=== PATIENT | male | born 1960 | race Caucasian/White ===

== ENCOUNTER 2018-06-28 18:57 | Inpatient (IN) | payer MEDICARE, MEDICAID ==
[~2018-06-28] VITALS: Ht 162.6 cm; Wt 74.8 kg
[~2018-06-28 18:57] MED LIST: AMLODIPINE; CLONIDINE; DOCUSATE; DOSTINEX; EPINEPHRINE 0.1MG/ML (1:10,000) 10ML SYR ONE; FOLIC ACID; LISINOPRIL; MAGNESIUM SULFATE 4G IN WATER 100ML PREMIX IV ONE; REGLAN; SIMVASTATIN; SODIUM BICARBONATE 7.5% 0.9 MEQ/ML 50ML SYR IV ONE; TRAMADOL
[2018-06-28] MEDS ORDERED: DOPAMINE 400MG PREMIX 250 ML IV ONE ×2 (19:13→19:45)
[2018-06-28] MEDS ORDERED: CALCIUM CHLORIDE 1GM/10ML SYR IV ONE ×2 (19:32→20:15)
[2018-06-28] MEDS ORDERED: EPINEPHRINE 0.1MG/ML (1:10,000) 10ML SYR ONE (19:35)
[2018-06-28] MEDS ORDERED: SODIUM BICARBONATE 8.4% 1 MEQ/ML 50ML SYR IV ONE ×2 (19:36→20:15)
[2018-06-28] MEDS ORDERED: NOREPINEPHRINE 4MG/250ML PMX 250 ML IV ONE (19:45)
[2018-06-28] MEDS ORDERED: NOREPINEPHRINE 4 MG in DEXT 5% WATER 246 ML IV ONE (19:45)
[2018-06-28 19:55] LABS: BASOPHILS % 0.9 % (0.0-2.0); EOSINOPHILS % 1.2 % (0.0-5.0); HEMATOCRIT. 35.5 % (42.0-52.0); HEMOGLOBIN. 11.4 g/dL (14.0-18.0); LYMPHOCYTES % 43.4 % (20.0-50.0); MEAN CORPUSCULAR HEMOGLOBIN 29.2 pg (28.0-32.0); MEAN CORPUSCULAR VOLUME 91.4 fL (80.0-94.0); MEAN PLATELET VOLUME 9.1 fl (7.4-10.4); MONOCYTES % 4.5 % (2.0-8.0); PLATELET 100 x1000/uL (130-400); RED BLOOD CELL COUNT 3.89 mill/uL (4.7-6.1); RED CELL DISTRIBUTION WIDTH 18.4 % (11.6-14.6)
[2018-06-28 19:58] LABS: CHLORIDE 103 mEq/L (98-107)
[2018-06-28 20:00] LABS: INR 1.2; PROTHROMBIN TIME 12.3 sec (9.1-11.1)
[2018-06-28 20:03] LABS: ETHANOL BLOOD < 10 mg/dL
[2018-06-28] MEDS ORDERED: SODIUM POLYSTYRENE SULFONATE 15 G/60 ML BOT PO ONE (20:15)
[2018-06-28] MEDS ORDERED: INSULIN REGULAR (HUMULIN R) 300UNITS/3ML IV ONE (20:15)
[2018-06-28] MEDS ORDERED: DEXTROSE 50% WATER 50ML SYRINGE IV ONE (20:15)
[2018-06-28 20:22] LABS: BG BASE EXCESS -17.7 mmol/L (-2.0-2.0); BG CARBOXYHEMOGLOBIN 0.6 % (0.5-1.5); BG DEOXYHEMOGLOBIN 23.4 % (0.0-5.0); BG FRACTION INSPIRED OXYGEN 100; BG HCO3 ACT 12.7 mmol/L (22.0-26.0); BG METHEMOGLOBIN 0.1 % (0.0-1.5); BG OXYGEN SATURATION 76.4 % (92.0-98.5); BG OXYHEMOGLOBIN 75.9 % (94.0-97.0); BG PCO2 49.3 mmHg (35.0-45.0); BG PIP 28 cmH2O; BG PO2 57.9 mmHg (75.0-100.0); BG SAMPLE SITE RIGHT BRACHIAL; BG TIDAL VOLUME(mL) 550 mL; BG VENT MODE VENT - A/C; BG VENT RATE 12 set
[2018-06-28] MEDS ORDERED: SODIUM CHLORIDE 0.9% 1000ML BAG (SEPSIS BOLUS) IV ONE (20:45)
[2018-06-28] MEDS ORDERED: PIPERACILLIN/TAZ 3.375G PREMIX 50 ML IV ONE (20:45)
[2018-06-28] MEDS ORDERED: VANCOMYCIN 1 G PREMIX 200 ML IV ONE (20:45)
[2018-06-28 22:21] VITALS: BP 117/47
[2018-06-28 22:30] VITALS: BP 128/96
[2018-06-28 23:00] VITALS: BP_SYST 117; BP_SYST 131; BP_DIAS 47; BP_DIAS 81
[2018-06-28] MEDS ORDERED: DOPAMINE 400MG PREMIX 250 ML IV PRN (23:15)
[2018-06-28] MEDS ORDERED: NOREPINEPHRINE 4 MG in DEXT 5% WATER 246 ML IV PRN (23:15)
[2018-06-28 23:30] VITALS: BP 154/104
[2018-06-28 23:45] VITALS: BP 143/86
[2018-06-29] VITALS (92 sets, daily range): BP systolic 85–195; BP diastolic 49–104
[2018-06-29] MEDS ORDERED: ACETAMINOPHEN 325MG TABLET NG PRN (03:15)
[2018-06-29] MEDS ORDERED: LORAZEPAM 0.5MG TABLET PO PRN (03:15)
[2018-06-29] MEDS ORDERED: IPRATROPIUM/ALBUTEROL 0.5-3(2.5)MG/3ML NEB INH PRN (03:15)
[2018-06-29] MEDS ORDERED: DEXTROSE 50% WATER 50ML SYRINGE IV PRN (03:15)
[2018-06-29] MEDS ORDERED: ONDANSETRON HCL 4MG/2ML INJ IV PRN (03:15)
[2018-06-29] MEDS: BLOOD SUGAR DIAGNOSTIC STRIP TEST SCH ×3 (05:09→18:00)
[2018-06-29] MEDS: INSULIN LISPRO 100 UNITS/ML SUBCUT SCH ×3 (05:13→18:00)
[2018-06-29 05:45] LABS: BG BASE EXCESS -1.2 mmol/L (-2.0-2.0); BG CARBOXYHEMOGLOBIN 0.3 % (0.5-1.5); BG DEOXYHEMOGLOBIN 1.4 % (0.0-5.0); BG FRACTION INSPIRED OXYGEN 100; BG HCO3 ACT 20.5 mmol/L (22.0-26.0); BG METHEMOGLOBIN 0.1 % (0.0-1.5); BG OXYGEN SATURATION 98.6 % (92.0-98.5); BG OXYHEMOGLOBIN 98.2 % (94.0-97.0); BG PCO2 25.1 mmHg (35.0-45.0); BG SAMPLE SITE RIGHT RADIAL; BG TIDAL VOLUME(mL) 550 mL; BG TOTAL HEMOGLOBIN 10.3 g/dL (12.0-18.0); BG VENT MODE VENT - A/C; BG VENT RATE 12 set
[2018-06-29] MEDS ORDERED: MORPHINE SULFATE 2 MG/ML CPJ (NOT FOR IM USE) IV PRN (06:00)
[2018-06-29 08:45] LABS: HEMATOCRIT 31.2 % (42.0-52.0); HEMOGLOBIN 10.4 g/dL (14.0-18.0); MEAN CORPUSCULAR HEMOGLOBIN 29.2 pg (28.0-32.0); MEAN CORPUSCULAR VOLUME 87.4 fL (80.0-94.0); PLATELET 112 x1000/uL (130-400); RED BLOOD CELL COUNT 3.57 mill/uL (4.7-6.1); RED CELL DISTRIBUTION WIDTH 18.2 % (11.6-14.6)
[2018-06-29] MEDS ORDERED: DIATR MEGLU/DIATRIZOATE SOLN 30ML PO SCH (08:45)
[2018-06-29] MEDS ORDERED: PIPERACILLIN/TAZ 3.375G PREMIX 50 ML IV SCH (08:45)
[2018-06-29 08:53] LABS: CHLORIDE 97 mEq/L (98-107)
[2018-06-29] MEDS: PIPERACILLIN/TAZ 2.25G PREMIX 50 ML IV SCH ×3 (09:15→23:11)
[2018-06-29] MEDS: PANTOPRAZOLE SODIUM 40 MG/VIAL IV SCH (09:46)
[2018-06-29] MEDS ORDERED: VANCOMYCIN 500 MG PREMIX 100 ML IV NR (11:00)
[2018-06-29] MEDS ORDERED: DIATR MEGLU/DIATRIZOATE SOLN 30ML PO NR (13:30)
[2018-06-29] MEDS: LORAZEPAM 2MG/ML CPJ IV PRN (13:56)
[2018-06-29] MEDS: IPRATROPIUM/ALBUTEROL 0.5-3(2.5)MG/3ML NEB HHN SCH ×2 (14:19→20:05)
[2018-06-29] MEDS ORDERED: IOHEXOL-300 100 ML BOTTLE ONE (19:04)
[2018-06-29] MEDS ORDERED: LORAZEPAM 2MG/ML CPJ IV PRN (21:30)
[2018-06-30] VITALS (62 sets, daily range): BP systolic 95–160; BP diastolic 46–97
[2018-06-30] MEDS: BLOOD SUGAR DIAGNOSTIC STRIP TEST SCH ×4 (00:37→18:00)
[2018-06-30] MEDS: IPRATROPIUM/ALBUTEROL 0.5-3(2.5)MG/3ML NEB HHN SCH ×4 (01:41→20:03)
[2018-06-30] MEDS: PIPERACILLIN/TAZ 2.25G PREMIX 50 ML IV SCH ×4 (03:22→21:26)
[2018-06-30 05:58] LABS: BASOPHILS % 0.5 % (0.0-2.0); EOSINOPHILS % 0.6 % (0.0-5.0); HEMATOCRIT. 27.9 % (42.0-52.0); HEMOGLOBIN. 9.5 g/dL (14.0-18.0); LYMPHOCYTES % 11.5 % (20.0-50.0); MEAN CORPUSCULAR HEMOGLOBIN 29.9 pg (28.0-32.0); MEAN CORPUSCULAR VOLUME 87.5 fL (80.0-94.0); MEAN PLATELET VOLUME 8.7 fl (7.4-10.4); MONOCYTES % 5.5 % (2.0-8.0); NEUTROPHILS % 81.9 % (40.0-76.0); PLATELET 88 x1000/uL (130-400); RED BLOOD CELL COUNT 3.19 mill/uL (4.7-6.1); RED CELL DISTRIBUTION WIDTH 18.5 % (11.6-14.6)
[2018-06-30] MEDS: INSULIN LISPRO 100 UNITS/ML SUBCUT SCH ×4 (06:00→18:06)
[2018-06-30 06:02] LABS: INR 1.3
[2018-06-30 07:34] LABS: BG BASE EXCESS -3.5 mmol/L (-2.0-2.0); BG CARBOXYHEMOGLOBIN 0.7 % (0.5-1.5); BG HCO3 ACT 22.2 mmol/L (22.0-26.0); BG METHEMOGLOBIN 0.1 % (0.0-1.5); BG OXYGEN SATURATION 74.8 % (92.0-98.5); BG OXYHEMOGLOBIN 74.2 % (94.0-97.0); BG PCO2 42.6 mmHg (35.0-45.0); BG PH 7.334 (7.350-7.450); BG PO2 45.8 mmHg (75.0-100.0); BG SAMPLE SITE RIGHT RADIAL; BG TIDAL VOLUME(mL) 550 mL; BG TOTAL HEMOGLOBIN 10.6 g/dL (12.0-18.0); BG VENT MODE VENT - A/C; BG VENT RATE 12 set
[2018-06-30] MEDS: LORAZEPAM 2MG/ML CPJ IV PRN ×3 (07:42→15:50)
[2018-06-30] MEDS: PANTOPRAZOLE SODIUM 40 MG/VIAL IV SCH (09:09)
[2018-06-30] MEDS ORDERED: LIDOCAINE HCL/PF 1% 2ML VIAL ONE (14:38)
[2018-06-30] MEDS ORDERED: VANCOMYCIN 1 G PREMIX 200 ML IV NR (17:00)
[2018-06-30] MEDS ORDERED: EPOETIN ALFA 10000UNITS/ML VIAL SUBCUT SCH (21:00)
[2018-07-01] VITALS (52 sets, daily range): BP systolic 62–165; BP diastolic 42–121
[2018-07-01] MEDS: INSULIN LISPRO 100 UNITS/ML SUBCUT SCH ×4 (00:14→17:38)
[2018-07-01] MEDS: BLOOD SUGAR DIAGNOSTIC STRIP TEST SCH ×4 (00:15→17:39)
[2018-07-01] MEDS: EPOETIN ALFA 10000UNITS/ML VIAL SUBCUT SCH (01:54)
[2018-07-01] MEDS: IPRATROPIUM/ALBUTEROL 0.5-3(2.5)MG/3ML NEB HHN SCH ×4 (02:02→19:57)
[2018-07-01] MEDS: LORAZEPAM 2MG/ML CPJ IV PRN (02:04)
[2018-07-01] MEDS: PIPERACILLIN/TAZ 2.25G PREMIX 50 ML IV SCH ×3 (06:06→21:11)
[2018-07-01 06:32] LABS: HEMATOCRIT. 28.9 % (42.0-52.0); HEMOGLOBIN. 9.6 g/dL (14.0-18.0); MEAN CORPUSCULAR HEMOGLOBIN 29.3 pg (28.0-32.0); MEAN PLATELET VOLUME 8.5 fl (7.4-10.4); PLATELET 84 x1000/uL (130-400); RED BLOOD CELL COUNT 3.29 mill/uL (4.7-6.1); RED CELL DISTRIBUTION WIDTH 17.9 % (11.6-14.6)
[2018-07-01 06:59] LABS: PLATELET ESTIMATE DECREASED
[2018-07-01] MEDS: PANTOPRAZOLE SODIUM 40 MG/VIAL IV SCH (08:50)
[2018-07-01 09:51] LABS: BG BASE EXCESS 0.7 mmol/L (-2.0-2.0); BG CARBOXYHEMOGLOBIN 0.1 % (0.5-1.5); BG DEOXYHEMOGLOBIN 3.5 % (0.0-5.0); BG HCO3 ACT 25.9 mmol/L (22.0-26.0); BG METHEMOGLOBIN 0.2 % (0.0-1.5); BG OXYGEN SATURATION 96.5 % (92.0-98.5); BG OXYHEMOGLOBIN 96.2 % (94.0-97.0); BG PCO2 43.7 mmHg (35.0-45.0); BG PO2 94.6 mmHg (75.0-100.0); BG SAMPLE SITE RIGHT RADIAL; BG TIDAL VOLUME(mL) 550 mL; BG TOTAL HEMOGLOBIN 10.2 g/dL (12.0-18.0); BG VENT MODE VENT - A/C; BG VENT RATE 12 set
[2018-07-01] MEDS ORDERED: MORPHINE SULFATE 2 MG/ML CPJ (NOT FOR IM USE) IV PRN (14:15)
[2018-07-01] MEDS: HYDROMORPHONE HCL/PF 2MG/ML CPJ IV PRN (16:03)
[2018-07-02] VITALS (81 sets, daily range): BP systolic 66–201; BP diastolic 37–186
[2018-07-02] MEDS: INSULIN LISPRO 100 UNITS/ML SUBCUT SCH ×5 (00:22→23:16)
[2018-07-02] MEDS: BLOOD SUGAR DIAGNOSTIC STRIP TEST SCH ×5 (00:22→23:16)
[2018-07-02 00:59] LABS: BG BASE EXCESS -4.1 mmol/L (-2.0-2.0); BG CARBOXYHEMOGLOBIN 0.5 % (0.5-1.5); BG DEOXYHEMOGLOBIN 4.8 % (0.0-5.0); BG FRACTION INSPIRED OXYGEN 40; BG HCO3 ACT 19.8 mmol/L (22.0-26.0); BG METHEMOGLOBIN 0.1 % (0.0-1.5); BG OXYGEN SATURATION 95.2 % (92.0-98.5); BG OXYHEMOGLOBIN 94.6 % (94.0-97.0); BG PCO2 32.3 mmHg (35.0-45.0); BG PH 7.406 (7.350-7.450); BG PO2 82.3 mmHg (75.0-100.0); BG SAMPLE SITE RIGHT RADIAL; BG TIDAL VOLUME(mL) 550 mL; BG TOTAL HEMOGLOBIN 11.3 g/dL (12.0-18.0); BG VENT MODE VENT - A/C; BG VENT RATE 12 set
[2018-07-02] MEDS: IPRATROPIUM/ALBUTEROL 0.5-3(2.5)MG/3ML NEB HHN SCH ×4 (01:39→20:13)
[2018-07-02 05:12] LABS: HEMOGLOBIN. 10.3 g/dL (14.0-18.0); MEAN CORPUSCULAR HEMOGLOBIN 29.4 pg (28.0-32.0); MEAN CORPUSCULAR VOLUME 88.5 fL (80.0-94.0); MEAN PLATELET VOLUME 9.7 fl (7.4-10.4); PLATELET 103 x1000/uL (130-400); RED CELL DISTRIBUTION WIDTH 17.6 % (11.6-14.6)
[2018-07-02] MEDS: PIPERACILLIN/TAZ 2.25G PREMIX 50 ML IV SCH ×3 (05:46→21:16)
[2018-07-02 08:03] LABS: BG BASE EXCESS -4.8 mmol/L (-2.0-2.0); BG CARBOXYHEMOGLOBIN 0.3 % (0.5-1.5); BG DEOXYHEMOGLOBIN 1.8 % (0.0-5.0); BG FRACTION INSPIRED OXYGEN 40; BG METHEMOGLOBIN 0.3 % (0.0-1.5); BG OXYGEN SATURATION 98.2 % (92.0-98.5); BG OXYHEMOGLOBIN 97.6 % (94.0-97.0); BG PCO2 30.6 mmHg (35.0-45.0); BG PO2 135.6 mmHg (75.0-100.0); BG SAMPLE SITE RIGHT RADIAL; BG TIDAL VOLUME(mL) 550 mL; BG TOTAL HEMOGLOBIN 10.7 g/dL (12.0-18.0); BG VENT MODE VENT - A/C; BG VENT RATE 12 set
[2018-07-02] MEDS: PANTOPRAZOLE SODIUM 40 MG/VIAL IV SCH (08:06)
[2018-07-02] MEDS: HYDROMORPHONE HCL/PF 2MG/ML CPJ IV PRN ×3 (08:07→23:37)
[2018-07-02 10:46] LABS: PLATELET ESTIMATE DECREASED
[2018-07-02] MEDS: LORAZEPAM 2MG/ML CPJ IV PRN (17:44)
[2018-07-02] MEDS ORDERED: VANCOMYCIN 750 MG PREMIX 150 ML IV SCH (21:00)
[2018-07-03] VITALS (59 sets, daily range): BP systolic 90–144; BP diastolic 50–82
[2018-07-03] MEDS: IPRATROPIUM/ALBUTEROL 0.5-3(2.5)MG/3ML NEB HHN SCH ×4 (02:07→21:21)
[2018-07-03] MEDS: INSULIN LISPRO 100 UNITS/ML SUBCUT SCH ×4 (05:25→23:26)
[2018-07-03] MEDS: PIPERACILLIN/TAZ 2.25G PREMIX 50 ML IV SCH ×3 (05:25→21:02)
[2018-07-03] MEDS: BLOOD SUGAR DIAGNOSTIC STRIP TEST SCH ×4 (05:25→23:26)
[2018-07-03] MEDS: PANTOPRAZOLE SODIUM 40 MG/VIAL IV SCH (08:28)
[2018-07-03] MEDS: NYSTATIN POWDER 15GM TOP SCH ×2 (08:29→16:11)
[2018-07-03] MEDS: HYDROMORPHONE HCL/PF 2MG/ML CPJ IV PRN (08:29)
[2018-07-03 10:58] LABS: BG BASE EXCESS 0.7 mmol/L (-2.0-2.0); BG CARBOXYHEMOGLOBIN 0.5 % (0.5-1.5); BG DEOXYHEMOGLOBIN 3.6 % (0.0-5.0); BG FRACTION INSPIRED OXYGEN 35; BG HCO3 ACT 27.1 mmol/L (22.0-26.0); BG OXYGEN SATURATION 96.4 % (92.0-98.5); BG OXYHEMOGLOBIN 95.9 % (94.0-97.0); BG PH 7.335 (7.350-7.450); BG PO2 94.1 mmHg (75.0-100.0); BG PRESSURE SUPPORT 8; BG SAMPLE SITE RIGHT RADIAL; BG TOTAL HEMOGLOBIN 10.3 g/dL (12.0-18.0); BG VENT MODE VENT - CPAP
[2018-07-04] VITALS (49 sets, daily range): BP systolic 89–140; BP diastolic 29–69
[2018-07-04] MEDS: IPRATROPIUM/ALBUTEROL 0.5-3(2.5)MG/3ML NEB HHN SCH ×4 (00:56→20:45)
[2018-07-04] MEDS: HYDROMORPHONE HCL/PF 2MG/ML CPJ IV PRN ×2 (04:40→23:49)
[2018-07-04] MEDS: PIPERACILLIN/TAZ 2.25G PREMIX 50 ML IV SCH ×3 (05:12→21:01)
[2018-07-04] MEDS: INSULIN LISPRO 100 UNITS/ML SUBCUT SCH ×3 (05:13→18:50)
[2018-07-04] MEDS: BLOOD SUGAR DIAGNOSTIC STRIP TEST SCH ×3 (05:15→18:47)
[2018-07-04 05:30] LABS: BASOPHILS % 0.6 % (0.0-2.0); EOSINOPHILS % 2.3 % (0.0-5.0); HEMATOCRIT. 28.3 % (42.0-52.0); HEMOGLOBIN. 9.3 g/dL (14.0-18.0); LYMPHOCYTES % 10.4 % (20.0-50.0); MEAN CORPUSCULAR HEMOGLOBIN 29.9 pg (28.0-32.0); MEAN CORPUSCULAR VOLUME 90.9 fL (80.0-94.0); MEAN PLATELET VOLUME 9.3 fl (7.4-10.4); MONOCYTES % 7.7 % (2.0-8.0); PLATELET 104 x1000/uL (130-400); RED BLOOD CELL COUNT 3.11 mill/uL (4.7-6.1); RED CELL DISTRIBUTION WIDTH 17.8 % (11.6-14.6)
[2018-07-04 05:53] LABS: PHOSPHORUS 7.4 mg/dL (2.5-4.9)
[2018-07-04] MEDS: PANTOPRAZOLE SODIUM 40 MG/VIAL IV SCH (08:00)
[2018-07-04] MEDS: CALCIUM ACETATE 667MG CAPSULE PO SCH ×3 (08:00→18:47)
[2018-07-04] MEDS: FOLIC ACID/VITAMIN B COMP W-C TABLET PO SCH (08:01)
[2018-07-04] MEDS: NYSTATIN POWDER 15GM TOP SCH ×2 (08:01→18:48)
[2018-07-05] VITALS (14 sets, daily range): BP systolic 91–147; BP diastolic 34–64
[2018-07-05] MEDS: IPRATROPIUM/ALBUTEROL 0.5-3(2.5)MG/3ML NEB HHN SCH ×4 (02:01→21:59)
[2018-07-05] MEDS: PIPERACILLIN/TAZ 2.25G PREMIX 50 ML IV SCH ×3 (06:07→21:14)
[2018-07-05] MEDS: HYDROMORPHONE HCL/PF 2MG/ML CPJ IV PRN ×2 (06:10→21:15)
[2018-07-05] MEDS: INSULIN LISPRO 100 UNITS/ML SUBCUT SCH ×4 (06:50→21:08)
[2018-07-05] MEDS: BLOOD SUGAR DIAGNOSTIC STRIP TEST SCH ×4 (06:52→20:47)
[2018-07-05 07:43] LABS: BASOPHILS % 0.8 % (0.0-2.0); EOSINOPHILS % 3.9 % (0.0-5.0); HEMOGLOBIN. 9.1 g/dL (14.0-18.0); LYMPHOCYTES % 14.4 % (20.0-50.0); MEAN CORPUSCULAR HEMOGLOBIN 29.5 pg (28.0-32.0); MEAN CORPUSCULAR VOLUME 90.1 fL (80.0-94.0); MEAN PLATELET VOLUME 9.1 fl (7.4-10.4); MONOCYTES % 7.7 % (2.0-8.0); NEUTROPHILS % 73.2 % (40.0-76.0); PLATELET 126 x1000/uL (130-400); RED CELL DISTRIBUTION WIDTH 17.4 % (11.6-14.6)
[2018-07-05] MEDS: NYSTATIN POWDER 15GM TOP SCH ×2 (07:59→17:00)
[2018-07-05] MEDS: CALCIUM ACETATE 667MG CAPSULE PO SCH ×3 (08:02→18:57)
[2018-07-05] MEDS: FOLIC ACID/VITAMIN B COMP W-C TABLET PO SCH (08:02)
[2018-07-05] MEDS: PANTOPRAZOLE SODIUM 40 MG/VIAL IV SCH (08:02)
[2018-07-05] MEDS ORDERED: HEPARIN 25,000 UNITS PREMIX 500 ML IV PRN (17:45)
[2018-07-05] MEDS ORDERED: HEPARIN 5000 UNITS/ML VIAL IV PRN ×2 (17:45)
[2018-07-05] MEDS ORDERED: HEPARIN 5000 UNITS/ML VIAL IV SCH (17:45)
[2018-07-05 19:48] LABS: INR 1.2; PROTHROMBIN TIME 12.1 sec (9.1-11.1)
[2018-07-05] MEDS ORDERED: HEPARIN 25,000 UNITS PREMIX 500 ML IV SCH (21:00)
[2018-07-05] MEDS ORDERED: HEPARIN BOLUS PRN aPTT 37-44 IV (21:00)
[2018-07-05] MEDS ORDERED: HEPARIN 80 UNITS/KG BOLUS IV NR (21:00)
[2018-07-05] MEDS ORDERED: HEPARIN BOLUS PRN aPTT <36 IV (21:00)
[2018-07-05] MEDS: EPOETIN ALFA 10000UNITS/ML VIAL SUBCUT SCH (21:11)
[2018-07-06] VITALS (18 sets, daily range): BP systolic 99–139; BP diastolic 24–79
[2018-07-06] MEDS ORDERED: DIPHENHYDRAMINE 25MG CAPSULE PO PRN (00:15)
[2018-07-06] MEDS: IPRATROPIUM/ALBUTEROL 0.5-3(2.5)MG/3ML NEB HHN SCH ×4 (03:21→21:26)
[2018-07-06] MEDS: PIPERACILLIN/TAZ 2.25G PREMIX 50 ML IV SCH ×3 (05:29→21:19)
[2018-07-06] MEDS: BLOOD SUGAR DIAGNOSTIC STRIP TEST SCH ×4 (06:27→22:54)
[2018-07-06] MEDS: INSULIN LISPRO 100 UNITS/ML SUBCUT SCH ×4 (06:50→21:00)
[2018-07-06] MEDS: NYSTATIN POWDER 15GM TOP SCH ×2 (08:58→17:00)
[2018-07-06] MEDS: PANTOPRAZOLE SODIUM 40 MG/VIAL IV SCH (08:58)
[2018-07-06] MEDS: FOLIC ACID/VITAMIN B COMP W-C TABLET PO SCH (08:58)
[2018-07-06] MEDS: CALCIUM ACETATE 667MG CAPSULE PO SCH ×3 (08:58→17:20)
[2018-07-06] MEDS ORDERED: LIDOCAINE HCL 1% 20ML VIAL (Pyxis) INJ ONE (15:01)
[2018-07-06] MEDS ORDERED: IODIXANOL 320MG/ML 100 ML BOTTLE IV ONE ×2 (15:01→15:25)
[2018-07-06] MEDS ORDERED: MIDAZOLAM HCL 2 MG/2 ML VIAL ONE (15:02)
[2018-07-06] MEDS ORDERED: FENTANYL CITRATE/PF 50MCG/ML 2ML VIAL ONE (15:03)
[2018-07-06] MEDS ORDERED: IOHEXOL-300 100 ML BOTTLE ONE (15:23)
[2018-07-06] MEDS: ASPIRIN 81MG TABLET PO SCH (16:00)
[2018-07-06] MEDS ORDERED: CLOPIDOGREL 75MG TABLET ONE (16:01)
[2018-07-06] MEDS ORDERED: ASPIRIN 325MG TABLET ONE (16:02)
[2018-07-06] MEDS ORDERED: NICARDIPINE 100MCG/ML 10ML VIAL (CATH LAB) IV ONE (16:08)
[2018-07-06] MEDS ORDERED: NITROGLYCERIN 50MCG/ML 10ML VIAL (CATH LAB) IV ONE (16:08)
[2018-07-06] MEDS ORDERED: HEPARIN SODIUM 1,000 UNIT/1ML VIAL IV ONE (16:12)
[2018-07-06] MEDS: MORPHINE SULFATE 4 MG/ML CPJ (NOT FOR IM USE) IV PRN (22:49)
[2018-07-07] VITALS (31 sets, daily range): BP systolic 100–153; BP diastolic 17–80
[2018-07-07] MEDS: IPRATROPIUM/ALBUTEROL 0.5-3(2.5)MG/3ML NEB HHN SCH ×4 (02:27→21:01)
[2018-07-07] MEDS ORDERED: ATROPINE SULFATE 1MG/10ML SYR ONE (03:39)
[2018-07-07] MEDS: BLOOD SUGAR DIAGNOSTIC STRIP TEST SCH ×4 (05:21→21:13)
[2018-07-07] MEDS: MORPHINE SULFATE 4 MG/ML CPJ (NOT FOR IM USE) IV PRN (05:31)
[2018-07-07] MEDS: INSULIN LISPRO 100 UNITS/ML SUBCUT SCH ×4 (06:14→21:36)
[2018-07-07] MEDS: CALCIUM ACETATE 667MG CAPSULE PO SCH ×3 (07:20→19:14)
[2018-07-07 07:58] LABS: BASOPHILS % 0.7 % (0.0-2.0); EOSINOPHILS % 2.5 % (0.0-5.0); HEMOGLOBIN. 9.3 g/dL (14.0-18.0); LYMPHOCYTES % 13.6 % (20.0-50.0); MEAN CORPUSCULAR HEMOGLOBIN 29.5 pg (28.0-32.0); MEAN CORPUSCULAR VOLUME 91.6 fL (80.0-94.0); MEAN PLATELET VOLUME 8.3 fl (7.4-10.4); MONOCYTES % 8.4 % (2.0-8.0); NEUTROPHILS % 74.8 % (40.0-76.0); PLATELET 154 x1000/uL (130-400); RED BLOOD CELL COUNT 3.16 mill/uL (4.7-6.1); RED CELL DISTRIBUTION WIDTH 17.3 % (11.6-14.6)
[2018-07-07] MEDS: PANTOPRAZOLE SODIUM 40 MG/VIAL IV SCH (08:33)
[2018-07-07] MEDS: CLOPIDOGREL 75MG TABLET PO SCH (08:33)
[2018-07-07] MEDS: FOLIC ACID/VITAMIN B COMP W-C TABLET PO SCH (08:33)
[2018-07-07] MEDS: ASPIRIN 81MG TABLET PO SCH (08:33)
[2018-07-07] MEDS: HEPARIN 5000 UNITS/ML VIAL SUBCUT SCH ×2 (08:34→21:10)
[2018-07-07] MEDS ORDERED: HYDROMORPHONE HCL/PF 2MG/ML CPJ IV PRN (09:15)
[2018-07-07] MEDS: NYSTATIN POWDER 15GM TOP SCH ×2 (16:25→17:00)
[2018-07-08] VITALS (11 sets, daily range): BP systolic 116–142; BP diastolic 24–65
[2018-07-08] MEDS: IPRATROPIUM/ALBUTEROL 0.5-3(2.5)MG/3ML NEB HHN SCH ×3 (01:25→15:15)
[2018-07-08] MEDS: BLOOD SUGAR DIAGNOSTIC STRIP TEST SCH ×3 (06:24→17:02)
[2018-07-08] MEDS: INSULIN LISPRO 100 UNITS/ML SUBCUT SCH ×3 (06:50→17:23)
[2018-07-08 07:42] LABS: BASOPHILS % 0.8 % (0.0-2.0); EOSINOPHILS % 3.5 % (0.0-5.0); HEMATOCRIT. 29.6 % (42.0-52.0); HEMOGLOBIN. 9.4 g/dL (14.0-18.0); LYMPHOCYTES % 15.6 % (20.0-50.0); MEAN CORPUSCULAR VOLUME 91.5 fL (80.0-94.0); MEAN PLATELET VOLUME 7.9 fl (7.4-10.4); MONOCYTES % 8.5 % (2.0-8.0); NEUTROPHILS % 71.6 % (40.0-76.0); PLATELET 160 x1000/uL (130-400); RED BLOOD CELL COUNT 3.24 mill/uL (4.7-6.1); RED CELL DISTRIBUTION WIDTH 17.7 % (11.6-14.6)
[2018-07-08] MEDS: CLOPIDOGREL 75MG TABLET PO SCH (08:38)
[2018-07-08] MEDS: FOLIC ACID/VITAMIN B COMP W-C TABLET PO SCH (08:38)
[2018-07-08] MEDS: HEPARIN 5000 UNITS/ML VIAL SUBCUT SCH (08:38)
[2018-07-08] MEDS: ASPIRIN 81MG TABLET PO SCH (08:38)
[2018-07-08] MEDS: PANTOPRAZOLE SODIUM 40 MG/VIAL IV SCH (08:38)
[2018-07-08] MEDS: NYSTATIN POWDER 15GM TOP SCH (09:00)
[2018-07-08] MEDS: CALCIUM ACETATE 667MG CAPSULE PO SCH ×2 (13:10→17:22)
== END 2018-07-08 18:40 | DRG 246 ==
LOC: ER 18:57 → MICUSO 21:11 → EDBEDREQTM 21:16 → EDBEDREQ 21:16 → ENRESERV 21:26 → 3WST 07-04 23:14
PROVIDERS: ADMIT Internal Medicine; ATTEND Internal Medicine
PROC: 5A1955Z Respiratory Ventilation, Greater than 96 Consecutive Hours (ICD-10-PCS; principal; 2018-06-28)
PROC: 0BH17EZ Insertion of Endotracheal Airway into Trachea, Via Natural or Artificial Opening (ICD-10-PCS; 2018-06-28)
PROC: 5A12012 Performance of Cardiac Output, Single, Manual (ICD-10-PCS; 2018-06-28)
PROC: 06HM33Z Insertion of Infusion Device into Right Femoral Vein, Percutaneous Approach (ICD-10-PCS; 2018-06-28)
PROC: B54BZZA Ultrasonography of Right Lower Extremity Veins, Guidance (ICD-10-PCS; 2018-06-28)
PROC: 5A1D70Z Performance of Urinary Filtration, Intermittent, Less than 6 Hours Per Day (ICD-10-PCS; 2018-06-29)
PROC: 5A1D70Z Performance of Urinary Filtration, Intermittent, Less than 6 Hours Per Day (ICD-10-PCS; 2018-06-30)
PROC: 5A1D70Z Performance of Urinary Filtration, Intermittent, Less than 6 Hours Per Day (ICD-10-PCS; 2018-07-02)
PROC: 5A1D70Z Performance of Urinary Filtration, Intermittent, Less than 6 Hours Per Day (ICD-10-PCS; 2018-07-05)
PROC: 027035Z Dilation of Coronary Artery, One Artery with Two Drug-eluting Intraluminal Devices, Percutaneous Approach (ICD-10-PCS; 2018-07-06)
PROC: 4A023N7 Measurement of Cardiac Sampling and Pressure, Left Heart, Percutaneous Approach (ICD-10-PCS; 2018-07-06)
PROC: B2111ZZ Fluoroscopy of Multiple Coronary Arteries using Low Osmolar Contrast (ICD-10-PCS; 2018-07-06)
PROC: B2151ZZ Fluoroscopy of Left Heart using Low Osmolar Contrast (ICD-10-PCS; 2018-07-06)
PROC: B2181ZZ Fluoroscopy of Left Internal Mammary Bypass Graft using Low Osmolar Contrast (ICD-10-PCS; 2018-07-06)
PROC: B2121ZZ Fluoroscopy of Single Coronary Artery Bypass Graft using Low Osmolar Contrast (ICD-10-PCS; 2018-07-06)
PROC: 5A1D70Z Performance of Urinary Filtration, Intermittent, Less than 6 Hours Per Day (ICD-10-PCS; 2018-07-06)
DX: I21.4 Non-ST elevation (NSTEMI) myocardial infarction (principal); J96.01 Acute respiratory failure with hypoxia; I50.23 Acute on chronic systolic (congestive) heart failure; N18.6 End stage renal disease; I49.01 Ventricular fibrillation; I46.9 Cardiac arrest, cause unspecified; E43 Unspecified severe protein-calorie malnutrition; G93.1 Anoxic brain damage, not elsewhere classified; E87.2 Acidosis; I13.2 Hypertensive heart and chronic kidney disease with heart failure and with stage 5 chronic kidney disease, or end stage renal disease; I82.621 Acute embolism and thrombosis of deep veins of right upper extremity; N17.9 Acute kidney failure, unspecified; E87.5 Hyperkalemia; E11.319 Type 2 diabetes mellitus with unspecified diabetic retinopathy without macular edema; E11.51 Type 2 diabetes mellitus with diabetic peripheral angiopathy without gangrene; E11.22 Type 2 diabetes mellitus with diabetic chronic kidney disease; R74.0 Nonspecific elevation of levels of transaminase and lactic acid dehydrogenase [LDH]; R19.7 Diarrhea, unspecified; R26.9 Unspecified abnormalities of gait and mobility; E11.42 Type 2 diabetes mellitus with diabetic polyneuropathy; D64.9 Anemia, unspecified; I25.5 Ischemic cardiomyopathy; E78.5 Hyperlipidemia, unspecified; I25.10 Atherosclerotic heart disease of native coronary artery without angina pectoris; G54.6 Phantom limb syndrome with pain; H54.62 Unqualified visual loss, left eye, normal vision right eye; I25.2 Old myocardial infarction; Z78.1 Physical restraint status; Z99.2 Dependence on renal dialysis; Z83.3 Family history of diabetes mellitus; Z95.810 Presence of automatic (implantable) cardiac defibrillator; Z95.1 Presence of aortocoronary bypass graft; Z88.5 Allergy status to narcotic agent; Z79.899 Other long term (current) drug therapy; Z89.422 Acquired absence of other left toe(s); Z89.421 Acquired absence of other right toe(s); Z68.28 Body mass index [BMI] 28.0-28.9, adult
CPT/HCPCS: 36415; 36556; 36600; 71045; 74177; 80048; 80051; 80202; 82375; 82805; 82962; 83605; 83735; 83880; 84100; 84132; 84134; 84484; 85027; 85347; 86850; 86900; 87070; 87106; 92610; 92928; 92950; 93005; 93306; 93459; 93971; 94002; 94003; 94640; 96374; 96375; 97162; 97166; 97530; 97535; 99291; A6261; C1725; C1769; C1874; C1887; C1893; C9113; G0482; J0461; J0885; J1170; J1265; J1644; J1815; J2060; J2250; J2270; J2543; J3010; J3370; J3475; J3490; J7030; J7050; J7060; J7620; Q0163; Q9963; Q9967

== ENCOUNTER 2018-07-08 18:45 | Inpatient (IN) | payer MEDICARE, MEDICAID ==
[~2018-07-08] VITALS: Ht 172.7 cm; Wt 74.8 kg
[~2018-07-08 18:45] MED LIST changes: -EPINEPHRINE 0.1MG/ML (1:10,000) 10ML SYR ONE; -MAGNESIUM SULFATE 4G IN WATER 100ML PREMIX IV ONE; -SODIUM BICARBONATE 7.5% 0.9 MEQ/ML 50ML SYR IV ONE
[2018-07-08] MEDS ORDERED: IPRATROPIUM/ALBUTEROL 0.5-3(2.5)MG/3ML NEB HHN PRN (19:45)
[2018-07-08] MEDS ORDERED: ONDANSETRON HCL 4MG/2ML INJ IV PRN (19:45)
[2018-07-08] MEDS ORDERED: ACETAMINOPHEN 325MG TABLET PO PRN (19:45)
[2018-07-08 20:00] VITALS: BP_SYST 138; BP_SYST 142; BP_DIAS 33; BP_DIAS 52
[2018-07-08] MEDS ORDERED: DEXTROSE 50% WATER 50ML SYRINGE IV PRN (20:00)
[2018-07-08] MEDS: HYDROMORPHONE HCL/PF 2MG/ML CPJ IV PRN (20:37)
[2018-07-08] MEDS: BLOOD SUGAR DIAGNOSTIC STRIP TEST SCH (21:00)
[2018-07-08] MEDS: IPRATROPIUM/ALBUTEROL 0.5-3(2.5)MG/3ML NEB HHN SCH (21:07)
[2018-07-08] MEDS: HEPARIN 5000 UNITS/ML VIAL SUBCUT SCH (22:02)
[2018-07-08] MEDS: INSULIN LISPRO 100 UNITS/ML SUBCUT SCH (22:11)
[2018-07-09] MEDS: HYDROMORPHONE HCL/PF 2MG/ML CPJ IV PRN ×3 (03:57→23:10)
[2018-07-09] MEDS: BLOOD SUGAR DIAGNOSTIC STRIP TEST SCH ×4 (05:59→21:13)
[2018-07-09] MEDS: INSULIN LISPRO 100 UNITS/ML SUBCUT SCH ×4 (05:59→21:42)
[2018-07-09] MEDS: DIPHENHYDRAMINE 25MG CAPSULE PO PRN (06:22)
[2018-07-09 07:53] LABS: BASOPHILS % 0.8 % (0.0-2.0); EOSINOPHILS % 3.3 % (0.0-5.0); HEMOGLOBIN. 9.3 g/dL (14.0-18.0); LYMPHOCYTES % 18.1 % (20.0-50.0); MEAN CORPUSCULAR HEMOGLOBIN 29.4 pg (28.0-32.0); MEAN CORPUSCULAR VOLUME 92.1 fL (80.0-94.0); MEAN PLATELET VOLUME 7.8 fl (7.4-10.4); MONOCYTES % 6.3 % (2.0-8.0); NEUTROPHILS % 71.5 % (40.0-76.0); PLATELET 155 x1000/uL (130-400); RED BLOOD CELL COUNT 3.14 mill/uL (4.7-6.1)
[2018-07-09 08:09] LABS: CHLORIDE 103 mEq/L (98-107)
[2018-07-09] MEDS: IPRATROPIUM/ALBUTEROL 0.5-3(2.5)MG/3ML NEB HHN SCH ×3 (08:09→19:55)
[2018-07-09 08:13] VITALS: BP 140/43
[2018-07-09] MEDS: CALCIUM ACETATE 667MG CAPSULE PO SCH ×3 (09:07→16:38)
[2018-07-09] MEDS: CLOPIDOGREL 75MG TABLET PO SCH (09:08)
[2018-07-09] MEDS: FOLIC ACID/VITAMIN B COMP W-C TABLET PO SCH (09:08)
[2018-07-09] MEDS: ASPIRIN 81MG TABLET PO SCH (09:08)
[2018-07-09] MEDS: HEPARIN 5000 UNITS/ML VIAL SUBCUT SCH ×2 (09:14→21:13)
[2018-07-09] MEDS: NYSTATIN POWDER 15GM TOP SCH ×2 (11:10→16:43)
[2018-07-09 20:00] VITALS: BP 122/43
[2018-07-10] MEDS: IPRATROPIUM/ALBUTEROL 0.5-3(2.5)MG/3ML NEB HHN SCH ×4 (03:53→21:27)
[2018-07-10] MEDS: INSULIN LISPRO 100 UNITS/ML SUBCUT SCH ×4 (05:40→21:00)
[2018-07-10] MEDS: BLOOD SUGAR DIAGNOSTIC STRIP TEST SCH ×4 (05:40→21:00)
[2018-07-10 07:00] VITALS: BP 132/17
[2018-07-10] MEDS: CLOPIDOGREL 75MG TABLET PO SCH (08:31)
[2018-07-10] MEDS: CALCIUM ACETATE 667MG CAPSULE PO SCH ×3 (08:31→17:09)
[2018-07-10] MEDS: FOLIC ACID/VITAMIN B COMP W-C TABLET PO SCH (08:31)
[2018-07-10] MEDS: NYSTATIN POWDER 15GM TOP SCH ×2 (08:31→17:09)
[2018-07-10] MEDS: HEPARIN 5000 UNITS/ML VIAL SUBCUT SCH ×2 (08:32→22:21)
[2018-07-10] MEDS: ASPIRIN 81MG TABLET PO SCH (08:32)
[2018-07-10 16:00] VITALS: BP 133/34
[2018-07-10] MEDS: TRAMADOL 50MG TABLET PO PRN (18:53)
[2018-07-10 20:00] VITALS: BP 118/32
[2018-07-10] MEDS: SILVER SULFADIAZINE 1% CREAM 50GM TOP SCH (22:20)
[2018-07-11] MEDS: IPRATROPIUM/ALBUTEROL 0.5-3(2.5)MG/3ML NEB HHN SCH ×2 (01:51→21:41)
[2018-07-11] MEDS: TRAMADOL 50MG TABLET PO PRN ×2 (02:54→16:37)
[2018-07-11] MEDS: INSULIN LISPRO 100 UNITS/ML SUBCUT SCH ×4 (06:11→21:48)
[2018-07-11] MEDS: BLOOD SUGAR DIAGNOSTIC STRIP TEST SCH ×4 (06:11→21:27)
[2018-07-11 07:57] VITALS: BP 136/43
[2018-07-11 08:29] LABS: BASOPHILS % 0.6 % (0.0-2.0); EOSINOPHILS % 2.6 % (0.0-5.0); HEMATOCRIT. 28.8 % (42.0-52.0); HEMOGLOBIN. 9.4 g/dL (14.0-18.0); MEAN CORPUSCULAR HEMOGLOBIN 30.2 pg (28.0-32.0); MEAN CORPUSCULAR VOLUME 92.3 fL (80.0-94.0); MEAN PLATELET VOLUME 7.6 fl (7.4-10.4); MONOCYTES % 7.1 % (2.0-8.0); NEUTROPHILS % 70.7 % (40.0-76.0); PLATELET 153 x1000/uL (130-400); RED BLOOD CELL COUNT 3.12 mill/uL (4.7-6.1); RED CELL DISTRIBUTION WIDTH 17.9 % (11.6-14.6)
[2018-07-11] MEDS: CLOPIDOGREL 75MG TABLET PO SCH (08:56)
[2018-07-11] MEDS: FOLIC ACID/VITAMIN B COMP W-C TABLET PO SCH (08:57)
[2018-07-11] MEDS: ASPIRIN 81MG TABLET PO SCH (08:57)
[2018-07-11] MEDS: DIPHENHYDRAMINE 25MG CAPSULE PO PRN (08:57)
[2018-07-11] MEDS: HEPARIN 5000 UNITS/ML VIAL SUBCUT SCH ×2 (08:58→23:55)
[2018-07-11] MEDS: CALCIUM ACETATE 667MG CAPSULE PO SCH ×3 (09:05→17:49)
[2018-07-11] MEDS: NYSTATIN POWDER 15GM TOP SCH ×2 (09:09→17:00)
[2018-07-11] MEDS: SILVER SULFADIAZINE 1% CREAM 50GM TOP SCH (09:09)
[2018-07-11 10:01] LABS: VITAMIN B12 SERUM 1296 pg/mL (211-911)
[2018-07-11 10:54] LABS: FOLIC ACID (FOLATE) SERUM > 20.00 ng/mL (>5.38)
[2018-07-11 11:44] LABS: FERRITIN 732 ng/mL (22-322)
[2018-07-11 11:45] LABS: PROSTRATE SPECIFIC AG TOTAL 0.64 ng/mL (0.0-4.0)
[2018-07-11 20:00] VITALS: BP 132/15
[2018-07-12] MEDS: TRAMADOL 50MG TABLET PO PRN ×2 (00:08→08:44)
[2018-07-12] MEDS: DIPHENHYDRAMINE 25MG CAPSULE PO PRN ×2 (00:08→16:58)
[2018-07-12] MEDS: IPRATROPIUM/ALBUTEROL 0.5-3(2.5)MG/3ML NEB HHN SCH ×4 (05:14→20:57)
[2018-07-12] MEDS: BLOOD SUGAR DIAGNOSTIC STRIP TEST SCH ×4 (06:15→20:49)
[2018-07-12] MEDS: INSULIN LISPRO 100 UNITS/ML SUBCUT SCH ×4 (06:15→20:53)
[2018-07-12 08:03] VITALS: BP 146/28
[2018-07-12] MEDS: SILVER SULFADIAZINE 1% CREAM 50GM TOP SCH (08:36)
[2018-07-12] MEDS: CALCIUM ACETATE 667MG CAPSULE PO SCH ×3 (08:36→16:58)
[2018-07-12] MEDS: NYSTATIN POWDER 15GM TOP SCH ×2 (08:36→17:24)
[2018-07-12] MEDS: FOLIC ACID/VITAMIN B COMP W-C TABLET PO SCH (08:37)
[2018-07-12] MEDS: ASPIRIN 81MG TABLET PO SCH (08:37)
[2018-07-12] MEDS: HEPARIN 5000 UNITS/ML VIAL SUBCUT SCH ×2 (08:37→20:49)
[2018-07-12] MEDS: CLOPIDOGREL 75MG TABLET PO SCH (08:37)
[2018-07-12 09:27] LABS: T4 FREE 1.16 ng/dL (0.76-1.46)
[2018-07-12 20:00] VITALS: BP 110/14
[2018-07-13] MEDS: IPRATROPIUM/ALBUTEROL 0.5-3(2.5)MG/3ML NEB HHN SCH ×4 (02:22→21:48)
[2018-07-13] MEDS: TRAMADOL 50MG TABLET PO PRN (03:23)
[2018-07-13] MEDS: BLOOD SUGAR DIAGNOSTIC STRIP TEST SCH ×4 (06:10→21:54)
[2018-07-13] MEDS: INSULIN LISPRO 100 UNITS/ML SUBCUT SCH ×4 (06:10→21:00)
[2018-07-13 08:06] VITALS: BP 137/35
[2018-07-13] MEDS: HEPARIN 5000 UNITS/ML VIAL SUBCUT SCH ×2 (09:00→21:00)
[2018-07-13] MEDS: DIPHENHYDRAMINE 25MG CAPSULE PO PRN (09:50)
[2018-07-13] MEDS: ASPIRIN 81MG TABLET PO SCH (09:50)
[2018-07-13] MEDS: CALCIUM ACETATE 667MG CAPSULE PO SCH ×3 (09:50→17:55)
[2018-07-13] MEDS: NYSTATIN POWDER 15GM TOP SCH ×2 (09:50→17:55)
[2018-07-13] MEDS: SILVER SULFADIAZINE 1% CREAM 50GM TOP SCH (09:50)
[2018-07-13] MEDS: CLOPIDOGREL 75MG TABLET PO SCH (09:50)
[2018-07-13] MEDS: FOLIC ACID/VITAMIN B COMP W-C TABLET PO SCH (09:50)
[2018-07-13 11:48] LABS: EOSINOPHILS % 2.2 % (0.0-5.0); HEMATOCRIT. 30.3 % (42.0-52.0); HEMOGLOBIN. 9.7 g/dL (14.0-18.0); LYMPHOCYTES % 20.5 % (20.0-50.0); MEAN CORPUSCULAR HEMOGLOBIN 29.6 pg (28.0-32.0); MEAN CORPUSCULAR VOLUME 92.2 fL (80.0-94.0); MEAN PLATELET VOLUME 7.3 fl (7.4-10.4); MONOCYTES % 7.6 % (2.0-8.0); NEUTROPHILS % 68.7 % (40.0-76.0); PLATELET 148 x1000/uL (130-400); RED BLOOD CELL COUNT 3.28 mill/uL (4.7-6.1); RED CELL DISTRIBUTION WIDTH 18.4 % (11.6-14.6)
[2018-07-13 20:00] VITALS: BP 127/18
[2018-07-14] MEDS: IPRATROPIUM/ALBUTEROL 0.5-3(2.5)MG/3ML NEB HHN SCH ×4 (03:55→21:25)
[2018-07-14] MEDS: INSULIN LISPRO 100 UNITS/ML SUBCUT SCH ×4 (06:30→20:51)
[2018-07-14] MEDS: BLOOD SUGAR DIAGNOSTIC STRIP TEST SCH ×4 (07:08→20:52)
[2018-07-14 08:00] VITALS: BP 142/52
[2018-07-14 08:25] LABS: BASOPHILS % 0.9 % (0.0-2.0); EOSINOPHILS % 2.7 % (0.0-5.0); HEMATOCRIT. 30.1 % (42.0-52.0); HEMOGLOBIN. 9.8 g/dL (14.0-18.0); LYMPHOCYTES % 23.4 % (20.0-50.0); MEAN CORPUSCULAR HEMOGLOBIN 29.9 pg (28.0-32.0); MEAN CORPUSCULAR VOLUME 92.5 fL (80.0-94.0); MEAN PLATELET VOLUME 7.7 fl (7.4-10.4); MONOCYTES % 9.4 % (2.0-8.0); NEUTROPHILS % 63.6 % (40.0-76.0); PLATELET 146 x1000/uL (130-400); RED BLOOD CELL COUNT 3.26 mill/uL (4.7-6.1); RED CELL DISTRIBUTION WIDTH 18.2 % (11.6-14.6)
[2018-07-14] MEDS: SILVER SULFADIAZINE 1% CREAM 50GM TOP SCH (08:36)
[2018-07-14] MEDS: NYSTATIN POWDER 15GM TOP SCH ×2 (08:36→17:37)
[2018-07-14] MEDS: CALCIUM ACETATE 667MG CAPSULE PO SCH ×3 (08:37→17:37)
[2018-07-14] MEDS: FOLIC ACID/VITAMIN B COMP W-C TABLET PO SCH (08:37)
[2018-07-14] MEDS: ASPIRIN 81MG TABLET PO SCH (09:00)
[2018-07-14] MEDS: HEPARIN 5000 UNITS/ML VIAL SUBCUT SCH ×2 (09:00→20:51)
[2018-07-14] MEDS: CLOPIDOGREL 75MG TABLET PO SCH (09:00)
[2018-07-14] MEDS: TRAMADOL 50MG TABLET PO PRN ×2 (10:20→23:16)
[2018-07-14 19:06] LABS: 25-HYDROXY VITAMIN D3 4.8 ng/mL (.)
[2018-07-14 20:00] VITALS: BP 124/15
[2018-07-15] MEDS: IPRATROPIUM/ALBUTEROL 0.5-3(2.5)MG/3ML NEB HHN SCH ×3 (01:13→22:05)
[2018-07-15] MEDS: BLOOD SUGAR DIAGNOSTIC STRIP TEST SCH ×4 (06:11→21:00)
[2018-07-15] MEDS: INSULIN LISPRO 100 UNITS/ML SUBCUT SCH ×4 (06:30→21:00)
[2018-07-15 06:48] LABS: BASOPHILS % 0.9 % (0.0-2.0); EOSINOPHILS % 2.6 % (0.0-5.0); HEMATOCRIT. 29.9 % (42.0-52.0); HEMOGLOBIN. 9.6 g/dL (14.0-18.0); LYMPHOCYTES % 26.9 % (20.0-50.0); MEAN CORPUSCULAR HEMOGLOBIN 29.8 pg (28.0-32.0); MEAN CORPUSCULAR VOLUME 92.7 fL (80.0-94.0); MEAN PLATELET VOLUME 7.6 fl (7.4-10.4); MONOCYTES % 9.3 % (2.0-8.0); NEUTROPHILS % 60.3 % (40.0-76.0); PLATELET 136 x1000/uL (130-400); RED BLOOD CELL COUNT 3.22 mill/uL (4.7-6.1); RED CELL DISTRIBUTION WIDTH 17.9 % (11.6-14.6)
[2018-07-15 07:48] VITALS: BP 148/55
[2018-07-15] MEDS: CALCIUM ACETATE 667MG CAPSULE PO SCH ×3 (09:10→17:32)
[2018-07-15] MEDS: FOLIC ACID/VITAMIN B COMP W-C TABLET PO SCH (09:10)
[2018-07-15] MEDS: ASPIRIN 81MG TABLET PO SCH (09:10)
[2018-07-15] MEDS: CLOPIDOGREL 75MG TABLET PO SCH (09:10)
[2018-07-15] MEDS: HEPARIN 5000 UNITS/ML VIAL SUBCUT SCH ×2 (09:46→22:24)
[2018-07-15] MEDS: SILVER SULFADIAZINE 1% CREAM 50GM TOP SCH (09:46)
[2018-07-15] MEDS: NYSTATIN POWDER 15GM TOP SCH ×2 (09:54→17:00)
[2018-07-15] MEDS ORDERED: ERGOCALCIFEROL 50000UNITS CAPSULE PO SCH (14:00)
[2018-07-15 20:00] VITALS: BP 132/31
[2018-07-16] MEDS: IPRATROPIUM/ALBUTEROL 0.5-3(2.5)MG/3ML NEB HHN SCH ×4 (04:18→20:46)
[2018-07-16] MEDS: INSULIN LISPRO 100 UNITS/ML SUBCUT SCH ×4 (06:30→21:34)
[2018-07-16] MEDS: BLOOD SUGAR DIAGNOSTIC STRIP TEST SCH ×4 (06:30→21:08)
[2018-07-16 08:00] VITALS: BP 151/42
[2018-07-16] MEDS: NYSTATIN POWDER 15GM TOP SCH ×2 (08:47→17:19)
[2018-07-16] MEDS: FOLIC ACID/VITAMIN B COMP W-C TABLET PO SCH (08:48)
[2018-07-16] MEDS: HEPARIN 5000 UNITS/ML VIAL SUBCUT SCH ×2 (08:48→21:30)
[2018-07-16] MEDS: CALCIUM ACETATE 667MG CAPSULE PO SCH ×3 (08:48→17:19)
[2018-07-16] MEDS: ASPIRIN 81MG TABLET PO SCH (08:48)
[2018-07-16] MEDS: SILVER SULFADIAZINE 1% CREAM 50GM TOP SCH (08:48)
[2018-07-16] MEDS: CLOPIDOGREL 75MG TABLET PO SCH (08:48)
[2018-07-16 20:00] VITALS: BP 107/17
[2018-07-16] MEDS: TRAMADOL 50MG TABLET PO PRN (21:06)
[2018-07-17] MEDS: IPRATROPIUM/ALBUTEROL 0.5-3(2.5)MG/3ML NEB HHN SCH ×4 (01:08→21:20)
[2018-07-17 08:00] VITALS: BP 128/32
[2018-07-17 08:51] LABS: EOSINOPHILS % 3.7 % (0.0-5.0); HEMATOCRIT. 29.6 % (42.0-52.0); HEMOGLOBIN. 9.4 g/dL (14.0-18.0); LYMPHOCYTES % 35.9 % (20.0-50.0); MEAN CORPUSCULAR HEMOGLOBIN 29.6 pg (28.0-32.0); MEAN CORPUSCULAR VOLUME 93.1 fL (80.0-94.0); MONOCYTES % 9.9 % (2.0-8.0); NEUTROPHILS % 48.5 % (40.0-76.0); PLATELET 134 x1000/uL (130-400); RED BLOOD CELL COUNT 3.18 mill/uL (4.7-6.1); RED CELL DISTRIBUTION WIDTH 18.1 % (11.6-14.6)
[2018-07-17] MEDS: CLOPIDOGREL 75MG TABLET PO SCH (09:22)
[2018-07-17] MEDS: CALCIUM ACETATE 667MG CAPSULE PO SCH ×3 (09:22→17:43)
[2018-07-17] MEDS: FOLIC ACID/VITAMIN B COMP W-C TABLET PO SCH (09:22)
[2018-07-17] MEDS: ASPIRIN 81MG TABLET PO SCH (09:23)
[2018-07-17] MEDS: HEPARIN 5000 UNITS/ML VIAL SUBCUT SCH ×2 (09:25→20:43)
[2018-07-17] MEDS: NYSTATIN POWDER 15GM TOP SCH ×2 (09:25→17:50)
[2018-07-17] MEDS: SILVER SULFADIAZINE 1% CREAM 50GM TOP SCH (09:26)
[2018-07-17] MEDS: INSULIN LISPRO 100 UNITS/ML SUBCUT SCH ×3 (11:15→20:43)
[2018-07-17] MEDS: BLOOD SUGAR DIAGNOSTIC STRIP TEST SCH ×3 (11:15→20:43)
[2018-07-17 20:00] VITALS: BP 114/22
[2018-07-17] MEDS: TRAMADOL 50MG TABLET PO PRN (22:44)
[2018-07-18] MEDS: IPRATROPIUM/ALBUTEROL 0.5-3(2.5)MG/3ML NEB HHN SCH ×4 (00:36→21:18)
[2018-07-18] MEDS: INSULIN LISPRO 100 UNITS/ML SUBCUT SCH ×4 (06:10→21:00)
[2018-07-18] MEDS: BLOOD SUGAR DIAGNOSTIC STRIP TEST SCH ×4 (06:11→21:51)
[2018-07-18 06:49] LABS: BASOPHILS % 1.4 % (0.0-2.0); EOSINOPHILS % 2.8 % (0.0-5.0); HEMATOCRIT. 29.5 % (42.0-52.0); HEMOGLOBIN. 9.4 g/dL (14.0-18.0); LYMPHOCYTES % 33.4 % (20.0-50.0); MEAN CORPUSCULAR HEMOGLOBIN 29.3 pg (28.0-32.0); MEAN CORPUSCULAR VOLUME 92.1 fL (80.0-94.0); MEAN PLATELET VOLUME 7.9 fl (7.4-10.4); MONOCYTES % 9.7 % (2.0-8.0); NEUTROPHILS % 52.7 % (40.0-76.0); PLATELET 131 x1000/uL (130-400); RED CELL DISTRIBUTION WIDTH 17.6 % (11.6-14.6)
[2018-07-18 07:39] LABS: PHOSPHORUS 5.1 mg/dL (2.5-4.9)
[2018-07-18 08:02] VITALS: BP 121/20
[2018-07-18] MEDS: CLOPIDOGREL 75MG TABLET PO SCH (09:35)
[2018-07-18] MEDS: HEPARIN 5000 UNITS/ML VIAL SUBCUT SCH (09:35)
[2018-07-18] MEDS: CALCIUM ACETATE 667MG CAPSULE PO SCH ×3 (09:35→19:23)
[2018-07-18] MEDS: SILVER SULFADIAZINE 1% CREAM 50GM TOP SCH (09:35)
[2018-07-18] MEDS: ASPIRIN 81MG TABLET PO SCH (09:35)
[2018-07-18] MEDS: NYSTATIN POWDER 15GM TOP SCH ×2 (09:35→19:29)
[2018-07-18] MEDS: FOLIC ACID/VITAMIN B COMP W-C TABLET PO SCH (09:35)
[2018-07-18] MEDS ORDERED: CEPHALEXIN 250 MG/5 ML 100ML PO SCH (14:45)
[2018-07-18 20:00] VITALS: BP 155/72
[2018-07-18] MEDS ORDERED: HEPARIN 5000 UNITS/ML VIAL SUBCUT SCH (21:00)
[2018-07-18] MEDS: CEPHALEXIN 250MG CAPSULE PO SCH (21:50)
[2018-07-19] MEDS: IPRATROPIUM/ALBUTEROL 0.5-3(2.5)MG/3ML NEB HHN SCH ×3 (02:22→15:26)
[2018-07-19] MEDS: INSULIN LISPRO 100 UNITS/ML SUBCUT SCH ×4 (06:30→21:59)
[2018-07-19] MEDS: BLOOD SUGAR DIAGNOSTIC STRIP TEST SCH ×4 (06:44→20:58)
[2018-07-19 08:00] VITALS: BP 119/33
[2018-07-19] MEDS: FOLIC ACID/VITAMIN B COMP W-C TABLET PO SCH ×2 (08:02→14:41)
[2018-07-19] MEDS: CALCIUM ACETATE 667MG CAPSULE PO SCH ×3 (08:02→16:54)
[2018-07-19] MEDS: CLOPIDOGREL 75MG TABLET PO SCH (08:02)
[2018-07-19] MEDS: NYSTATIN POWDER 15GM TOP SCH ×2 (08:03→16:55)
[2018-07-19] MEDS: CEPHALEXIN 250MG CAPSULE PO SCH ×2 (08:03→20:57)
[2018-07-19] MEDS: ASPIRIN 81MG TABLET PO SCH (08:03)
[2018-07-19] MEDS: SILVER SULFADIAZINE 1% CREAM 50GM TOP SCH (08:04)
[2018-07-19] MEDS: ZINC SULFATE 220 MG ( 50 ) CAPSULE PO SCH (14:41)
[2018-07-19 20:00] VITALS: BP 112/42
[2018-07-19] MEDS: ASCORBIC ACID 250 MG TABLET PO SCH (20:57)
[2018-07-19] MEDS: TRAMADOL 50MG TABLET PO PRN (20:58)
[2018-07-19] MEDS: HEPARIN 5000 UNITS/ML VIAL SUBCUT SCH (21:58)
[2018-07-19] MEDS: BACITRACIN 15GM TUBE TOP SCH (22:00)
[2018-07-20] MEDS: BLOOD SUGAR DIAGNOSTIC STRIP TEST SCH ×4 (06:13→20:42)
[2018-07-20] MEDS: IPRATROPIUM/ALBUTEROL 0.5-3(2.5)MG/3ML NEB HHN SCH ×4 (07:35→20:44)
[2018-07-20 07:37] LABS: BASOPHILS % 1.5 % (0.0-2.0); EOSINOPHILS % 3.3 % (0.0-5.0); HEMOGLOBIN. 9.5 g/dL (14.0-18.0); LYMPHOCYTES % 32.3 % (20.0-50.0); MEAN CORPUSCULAR HEMOGLOBIN 30.1 pg (28.0-32.0); MEAN CORPUSCULAR VOLUME 91.6 fL (80.0-94.0); MEAN PLATELET VOLUME 8.1 fl (7.4-10.4); MONOCYTES % 10.5 % (2.0-8.0); NEUTROPHILS % 52.4 % (40.0-76.0); PLATELET 128 x1000/uL (130-400); RED BLOOD CELL COUNT 3.17 mill/uL (4.7-6.1); RED CELL DISTRIBUTION WIDTH 17.1 % (11.6-14.6)
[2018-07-20 08:00] VITALS: BP 106/55
[2018-07-20] MEDS: CLOPIDOGREL 75MG TABLET PO SCH (09:54)
[2018-07-20] MEDS: ASCORBIC ACID 250 MG TABLET PO SCH ×2 (09:54→20:41)
[2018-07-20] MEDS: CALCIUM ACETATE 667MG CAPSULE PO SCH ×3 (09:54→20:42)
[2018-07-20] MEDS: ZINC SULFATE 220 MG ( 50 ) CAPSULE PO SCH (09:54)
[2018-07-20] MEDS: CEPHALEXIN 250MG CAPSULE PO SCH ×2 (09:54→20:41)
[2018-07-20] MEDS: FOLIC ACID/VITAMIN B COMP W-C TABLET PO SCH (09:55)
[2018-07-20] MEDS: HEPARIN 5000 UNITS/ML VIAL SUBCUT SCH ×2 (09:55→20:43)
[2018-07-20] MEDS: NYSTATIN POWDER 15GM TOP SCH ×2 (09:56→17:00)
[2018-07-20] MEDS: SILVER SULFADIAZINE 1% CREAM 50GM TOP SCH (09:56)
[2018-07-20] MEDS: BACITRACIN 15GM TUBE TOP SCH ×2 (09:56→20:43)
[2018-07-20] MEDS: ASPIRIN 81MG TABLET PO SCH (10:02)
[2018-07-20] MEDS: INSULIN LISPRO 100 UNITS/ML SUBCUT SCH ×3 (11:15→21:00)
[2018-07-20 20:00] VITALS: BP 96/29
[2018-07-21] MEDS: IPRATROPIUM/ALBUTEROL 0.5-3(2.5)MG/3ML NEB HHN SCH ×3 (02:16→13:22)
[2018-07-21] MEDS: BLOOD SUGAR DIAGNOSTIC STRIP TEST SCH ×3 (06:29→16:12)
[2018-07-21] MEDS: INSULIN LISPRO 100 UNITS/ML SUBCUT SCH ×3 (06:29→16:22)
[2018-07-21 08:00] VITALS: BP 147/53
[2018-07-21] MEDS: BACITRACIN 15GM TUBE TOP SCH (08:01)
[2018-07-21] MEDS: SILVER SULFADIAZINE 1% CREAM 50GM TOP SCH (08:01)
[2018-07-21] MEDS: ASPIRIN 81MG TABLET PO SCH (08:02)
[2018-07-21] MEDS: FOLIC ACID/VITAMIN B COMP W-C TABLET PO SCH (08:02)
[2018-07-21] MEDS: NYSTATIN POWDER 15GM TOP SCH ×2 (08:02→16:09)
[2018-07-21] MEDS: ASCORBIC ACID 250 MG TABLET PO SCH (08:02)
[2018-07-21] MEDS: ZINC SULFATE 220 MG ( 50 ) CAPSULE PO SCH (08:02)
[2018-07-21] MEDS: CLOPIDOGREL 75MG TABLET PO SCH (08:02)
[2018-07-21] MEDS: CALCIUM ACETATE 667MG CAPSULE PO SCH ×3 (08:02→16:09)
[2018-07-21] MEDS: CEPHALEXIN 250MG CAPSULE PO SCH (08:02)
[2018-07-21] MEDS: HEPARIN 5000 UNITS/ML VIAL SUBCUT SCH (08:03)
[2018-07-21 11:50] VITALS: BP 147/53
[2018-07-21] MEDS: TRAMADOL 50MG TABLET PO PRN (13:43)
[2018-07-21 19:50] VITALS: BP 119/36
== END 2018-07-21 19:50 | disposition home health service (06) | DRG 40 ==
PROVIDERS: ADMIT Physical Medicine & Rehabilitation Spinal Cord Injury Medicine; ATTEND Internal Medicine
PROC: 5A1D70Z Performance of Urinary Filtration, Intermittent, Less than 6 Hours Per Day (ICD-10-PCS; 2018-07-11)
PROC: 5A1D70Z Performance of Urinary Filtration, Intermittent, Less than 6 Hours Per Day (ICD-10-PCS; 2018-07-13)
PROC: 0JBR0ZZ Excision of Left Foot Subcutaneous Tissue and Fascia, Open Approach (ICD-10-PCS; principal; 2018-07-14)
PROC: 5A1D70Z Performance of Urinary Filtration, Intermittent, Less than 6 Hours Per Day (ICD-10-PCS; 2018-07-15)
PROC: 5A1D70Z Performance of Urinary Filtration, Intermittent, Less than 6 Hours Per Day (ICD-10-PCS; 2018-07-18)
PROC: 5A1D70Z Performance of Urinary Filtration, Intermittent, Less than 6 Hours Per Day (ICD-10-PCS; 2018-07-20)
DX: G93.49 Other encephalopathy (principal); I46.9 Cardiac arrest, cause unspecified; I21.4 Non-ST elevation (NSTEMI) myocardial infarction; N18.6 End stage renal disease; E43 Unspecified severe protein-calorie malnutrition; J96.90 Respiratory failure, unspecified, unspecified whether with hypoxia or hypercapnia; I49.01 Ventricular fibrillation; I13.2 Hypertensive heart and chronic kidney disease with heart failure and with stage 5 chronic kidney disease, or end stage renal disease; I42.9 Cardiomyopathy, unspecified; I50.22 Chronic systolic (congestive) heart failure; R57.9 Shock, unspecified; E87.2 Acidosis; I82.629 Acute embolism and thrombosis of deep veins of unspecified upper extremity; L03.113 Cellulitis of right upper limb; E11.42 Type 2 diabetes mellitus with diabetic polyneuropathy; G54.6 Phantom limb syndrome with pain; R53.81 Other malaise; E11.22 Type 2 diabetes mellitus with diabetic chronic kidney disease; I25.10 Atherosclerotic heart disease of native coronary artery without angina pectoris; E87.5 Hyperkalemia; D64.9 Anemia, unspecified; H54.62 Unqualified visual loss, left eye, normal vision right eye; D69.6 Thrombocytopenia, unspecified; E11.319 Type 2 diabetes mellitus with unspecified diabetic retinopathy without macular edema; E11.51 Type 2 diabetes mellitus with diabetic peripheral angiopathy without gangrene; E11.610 Type 2 diabetes mellitus with diabetic neuropathic arthropathy; E11.621 Type 2 diabetes mellitus with foot ulcer; E55.9 Vitamin D deficiency, unspecified; F32.9 Major depressive disorder, single episode, unspecified; I80.8 Phlebitis and thrombophlebitis of other sites; R94.6 Abnormal results of thyroid function studies; L60.3 Nail dystrophy; L97.529 Non-pressure chronic ulcer of other part of left foot with unspecified severity; Z79.02 Long term (current) use of antithrombotics/antiplatelets; Z79.4 Long term (current) use of insulin; Z95.5 Presence of coronary angioplasty implant and graft; Z95.1 Presence of aortocoronary bypass graft; Z87.891 Personal history of nicotine dependence; Z99.2 Dependence on renal dialysis; Z95.810 Presence of automatic (implantable) cardiac defibrillator; Z91.15 Patient's noncompliance with renal dialysis; I25.2 Old myocardial infarction; Z79.82 Long term (current) use of aspirin; Z83.3 Family history of diabetes mellitus; Z89.422 Acquired absence of other left toe(s); Z68.25 Body mass index [BMI] 25.0-25.9, adult
CPT/HCPCS: 36415; 73630; 80048; 82140; 82306; 82533; 82607; 82728; 82746; 82962; 83036; 83540; 83550; 83735; 84100; 84134; 84153; 84439; 84443; 84481; 86376; 92523; 92610; 93923; 93970; 94640; 97110; 97116; 97162; 97167; 97530; 97535; 97542; A6261; G0515; J1170; J1644; J1815; J7620; Q0163; G0103